=== PATIENT | male | born 1975 | race Caucasian/White ===

== ENCOUNTER 2016-10-29 10:51 | Emergency (ER) | payer OTHER ==
[2016-10-29 11:37] VITALS: BP 131/86
--- NOTE | 2016-10-29 13:25 | RAD ---
HISTORY: Redness and pain, history of left-sided DVT COMPARISONS: June 07, 2013 TECHNIQUE: Multiple transverse and longitudinal ultrasound images were obtained of the right lower extremity from the level of the common femoral vein inferiorly through to the infrapopliteal veins using grayscale, color Doppler, and spectral Doppler imaging with and without compression and with augmentation. Comparison images were obtained of the contralateral common femoral vein. FINDINGS: VEINS: There is thrombus noted within the greater saphenous vein from the mid inferior to the ankle. This is distant from the confluence with the common femoral vein. There is nonocclusive thrombus noted within the peroneal vein. The remainder of the venous system of the right lower extremity is compressible throughout its course, with normal flow on color Doppler imaging and normal response to augmentation on spectral Doppler imaging. SOFT TISSUES: Unremarkable. OTHER FINDINGS: None. IMPRESSION: 1. GREATER SAPHENOUS VEIN THROMBUS, DISTANT FROM THE CONFLUENCE OF THE COMMON FEMORAL VEIN. 2. NONOCCLUSIVE THROMBUS IN THE CALF.
--- NOTE | 2016-10-29 13:30 | UC ---
Ronal Longo Claudia, scrib[facility] on 10/29/16 at 1148 . Lower Extremity/Ankle HPI - HPI Summary HPI Summary: In Room Note: 41 year old male presents to the [facility] with right leg pain. Pt states that sudden onset Wednesday he noted erythema to the anterior aspect of his right lower leg. Then last night he notes that a red streak began to move up his right leg to the medial aspect of his right thigh where there is a small nodule. Pt states PMHX of DVT but notes that this pain feel more superficial .The DVT occurred 4 years ago to his left leg post surgery and he was placed on Coumadin. Pt notes that it is tender to palpation and tender to ambulate. Pt denies any recent travel. pt notes that he has no recollection of anything breaking the skin or any trauma to the leg that could have caused an infection. Pt denies NVD, abd pain, fever, chills. PMHx of DVT noted. MD Note: Vital signs reviewed. BP 131/86, on no Rx for HTN, pulse O2 96,2/10 R leg discomfort, occasional alcohol, on smoker. PMHx of HTN. Nurse's Note: Right leg redness and swelling. 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 Warm to touch. Has a history of DVT. First noticed symptoms on Wednesday - History of Current Complaint Chief Complaint: UCLowerExtremity Stated Complaint: LEG PAIN Hx Obtained From: Patient Onset/Duration: Sudden Onset - Wednesday, Lasting Days Aggravating Factor(s): Ambulation - Allergies/Home Medications Allergies/Adverse Reactions: Allergies Allergy/AdvReac Type Severity Reaction Status Date / Time Latex Allergy Mild Rash Verified 10/29/16 11:37 NSAIDs Allergy DEPTH Verified 10/29/16 11:37 PERCEPTION Home Medications: Home Medications NK [No Home Medications Reported] 10/29/16 [History Confirmed 10/29/16] PMH/Surg Hx/FS Hx/Imm Hx Previously Healthy: Yes Endocrine History Of: Denies: Diabetes, Thyroid Disease Cardiovascular History Of: Reports: Hypertension, Deep Vein Thrombosis Denies: Congestive Heart Failure Respiratory History Of: Denies: COPD, Asthma, Pneumonia, Pulmonary Embolism GI/ History Of: Denies: Ulcer, Renal Disease Neurological History Of: Denies: TIA, CVA, Dementia, Seizures, Migraine Psychological History Of: Reports: Anxiety Cancer History Of: Denies: Lung Cancer - Surgical History Surgical History: Yes Surgery Procedure, Year, and Place: VENTRAL hernia repair x 3, SEROMA SURG 04/30 , 08/02/2014. surgery for sport hernia on [place] [facility]d - Family History Known Family History: Positive: Cardiac Disease Family History: DVT, AFIB,TIA, Pancreatic CA, - Social History Occupation: Employed Full-time Lives: With Family Alcohol Use: Occasionally Substance Use Type: None Smoking Status (MU): Never Smoked Tobacco - Immunization History Most Recent Influenza Vaccination: n/a Most Recent Tetanus Shot: not sure Most Recent Pneumonia Vaccination: none Review of Systems Constitutional: Negative - NO FEVER CHILLS Skin: Other - right leg redness, swelling and pain (anterior aspect of lower leg and medcial aspect of thigh) Eyes: Negative ENT: Negative Respiratory: Negative - NO DIFFICULTY BREATHING Cardiovascular: Negative Gastrointestinal: Negative - NO ABD PAIN NVD Genitourinary: Negative Motor: Negative Neurovascular: Negative Musculoskeletal: Negative Neurological: Negative Psychological: Negative All Other Systems Reviewed And Are Negative: Yes Physical Exam Triage Information Reviewed: Yes Vital Signs: Initial Vital Signs Temp 97.7 F 10/29/16 11:30 Pulse 56 10/29/16 11:30 Resp 16 10/29/16 11:30 BP 131/86 10/29/16 11:30 Pulse Ox 96 10/29/16 11:30 Vital Signs Reviewed: Yes - Additional Comments Appearance: well-appearing, no pain distress, well-nourished Eyes: Conjunctiva clear ENT: Hearing grossly normal, pharynx normal, TMs normal, (-) muffled/hoarse voice Neck: Supple, no lymphadenopathy Resp: Chest non-tender, lungs clear, normal breath sounds, no respiratory distress Cardio: RRR, No murmur Abd: nontender, no organomegaly, soft Bowel: Present Musc: Strength intact, WERNER Neuro: Alert Psych: Age appropriate behavior Skin: RIGHT LOWER EXTREMITY: PATCHY REDNESS ANTERIOR TIBIA, WITH ASECENDSING ERYTHEMA TO THE MEDIAL ASPECT OF THE INNER THIGH AND POINT TENDERNESS OVER A 2CM NODULAR SUBCUTANEOUS LESION THAT IS MODERATELY TENDER TO PALPATION THAT IS LOCATED 10CM ABOVE THE KNEE ON THE MEDIAL THIGH Diagnostics - Laboratory Diagnostic Studies Completed/Ordered: VQ SCAN RIGHT LE: RADIOLOGIST- ACUTE CHANGES: 1. GREATER SAPHENOUS VEIN THROMBUS, DISTANT FROM THE CONFLUENCE OF THE COMMON FEMORAL. VEIN. 2. NONOCCLUSIVE THROMBUS IN THE CALF. Re-Evaluation - Re-Evaluation 1 Re-Evaluation Time: 13:12 Comment: Results of VQ discussed with pt whom agrees with plan to be trans. to [place] for further evaluation. Lower Extremity Course/Dx - Course Course Of Treatment: I discussed with the pt his US which shows DVT and Thrombophlebitis . He will need anti-cougulation, he called his PCP and will go immediately to their office to recieve anti-cougulation. I discussed this plan with the pt and he understands and agrees with it. This is his second DVT and may be related to his ventral hernia repair. Medications have been included in the original chart and reviewed. Elevated BP but has current hypertension diagnosis. - Differential Dx/Diagnosis Differential Diagnosis/HQI/PQRI: Cellulitis, DVT - right LE, Other - Thrombophlebitis Provider Diagnoses: Thrombophlebitis. peroneal vein DVT Discharge - Discharge Plan Condition: Stable Disposition: OTHER Discharge Disposition Comment: TO HIS DOCTOR FOR ANTICOAGULATION Patient Education Materials: Superficial Thrombophlebitis (ED), Leg Edema (ED) Referrals: No Primary Care Phys,NOPCP [Primary Care Provider] - Additional Instructions: WE DISCUSSED: 1. YOU HAVE SUPERFICIAL VEIN AND DEEP VEIN CLOT. 2. GO TO YOUR DOCTOR NOW FOR TREATMENT. 3. CALL US IF YOU HAVE ANY QUESTIONS OR CONCERNS. 4. GO TO ED FOR ANY BREATHING PROBLEMS OR WORSENING OF LEG SWELLING AND REDNESS. The documentation as recorded by the Ronal shaffer Claudia accurately reflects the service I personally performed and the decisions made by me, Arturo Arteaga MD.
== END 2016-10-29 13:28 ==
LOC: UCEAST 10:51
DX: I80.299 Phlebitis and thrombophlebitis of other deep vessels of unspecified lower extremity (principal); I82.4Z1 Acute embolism and thrombosis of unspecified deep veins of right distal lower extremity; I82.4Y1 Acute embolism and thrombosis of unspecified deep veins of right proximal lower extremity; I10 Essential (primary) hypertension; Z86.718 Personal history of other venous thrombosis and embolism
CPT/HCPCS: 99211; G0463